=== PATIENT | female | born 1965 | race Caucasian/White ===

== ENCOUNTER 2021-01-19 13:47 | Outpatient (CLI) | payer MEDICAID, SELFPAY ==
--- NOTE | 2021-01-19 13:56 | CT_ITS ---
WS: [id number] CTA HEAD TECHNIQUE: Contrast enhanced CTA of the head with coronal and sagittal reformatted images and maximum intensity projection (MIP) images. NASCET criteria utilized. CLINICAL INFORMATION: NONRUPTURED CEREBRAL ANEURYSM COMPARISON: CTA 11 28,018 DLP: 1471.[address] scans at [facility] use at least one of these dose optimization techniques: automat ed exposure control; mA and/or kV adjustment per patient size (includes targeted exams where dose is matched to clinical indication); or iterative reconstruction. FINDINGS: Prior aneurysm clipping along the anterior communicating artery with adjacent embolization coils. Left frontal shunt catheter with tip in the third ventricle. Beam hardening artifact from aneu rysm clips degrades some images. Chronic appearing infarct right caudate. Chronic lacunar infarcts in the left cerebellum. Prior postoperative changes right frontal and pterional craniotomy. Distal vertebral arteries are patent. Basilar artery is patent. Normal vascularity to the INDUSTRIAL HYGIENIST territo ry bilaterally. Both ICAs are patent at the skull base. Normal vascularity to the CAROLINE and MCA territories bilaterally . No hydrocephalus. Mastoid air cells well aerated. Paranasal sinuses well aerated. CT/CT angio head [id number] IMPRESSION: 1. Prior aneurysm clipping along anterior communicating artery with right fron murali and pterional craniotomy. Adjacent embolization coils. 2. No evidence of flow-limiting stenosis or aneurysm. 3. Otherwise unremarkable intracranial CTA. 4. Left frontal shunt catheter with tip in the third ventricle. No hydrocephal us. 5. Chronic appearing infarcts in the right caudate and cerebellum.
== END 2021-01-19 13:48 | disposition home or self-care (01) ==
PROVIDERS: PCP Family Medicine; Visit Provider Family Medicine
DX: I67.1 Cerebral aneurysm, nonruptured (principal); I63.9 Cerebral infarction, unspecified; Z98.2 Presence of cerebrospinal fluid drainage device
CPT/HCPCS: 70496; Q9967

== ENCOUNTER 2021-02-23 15:21 | Outpatient (CLI) | payer MEDICAID, SELFPAY ==
--- NOTE | 2021-02-23 15:27 | MM_ITS ---
WS: [id number] BILATERAL DIGITAL SCREENING MAMMOGRAPHY WITH CAD CLINICAL INFORMATION: SCREENING HISTORY: Screening mammogram. Bilateral breast soreness COMPARISON: None. TECHNIQUE: Bilateral CC and MLO views. FINDINGS: The breasts are composed of heterogeneous fibroglandular density tissue, which can limit the detectio n of small underlying mass lesions. Dense breast tissue upper outer breasts bilaterally. .No suspicio us mass, asymmetry, calcifications, or architectural distortion. No evidence of malignancy. MM/[id number] IMPRESSION: BI-RADS: 2-Benign FOLLOW UP: 1 Year Follow-up Recommend return to annual screening mammography.
== END 2021-02-23 15:22 | disposition home or self-care (01) ==
PROVIDERS: PCP Family Medicine; Visit Provider Family Medicine
DX: Z12.31 Encounter for screening mammogram for malignant neoplasm of breast (principal)
CPT/HCPCS: 77067

== ENCOUNTER → 2021-06-29 16:06 | Outpatient (BNVA) | payer MEDICAID, SELFPAY | PROVIDERS: PCP Family Medicine; Visit Provider Registered Nurse Neonatal Intensive Care | DX: N39.0 Urinary tract infection, site not specified (principal); M62.838 Other muscle spasm | CPT/HCPCS: 81000 ==

== ENCOUNTER 2022-08-24 13:54 | Outpatient (CLI) | payer MEDICAID, SELFPAY ==
--- NOTE | 2022-08-24 14:00 | MM_ITS ---
WS: [id number] BILATERAL 3D TOMOSYNTHESIS DIGITAL SCREENING MAMMOGRAPHY WITH CAD CLINICAL INFORMATION: SCREENING HISTORY: Screening mammogram. Bilateral breast pain and soreness. COMPARISON: February 23, 2021 TECHNIQUE: Bilateral CC and MLO views. FINDINGS: The breasts are composed of heterogeneous fibroglandular density tissue, which can limit the detectio n of small underlying mass lesions. No suspicious mass, asymmetry, calcifications, or architectural d istortion. No evidence of malignancy. A few tiny punctate calcifications. MM/[id number] IMPRESSION: BI-RADS: 2-Benign FOLLOW UP: 1 Year Follow-up Recommend return to annual screening mammography.
== END 2022-08-24 13:55 | disposition home or self-care (01) ==
LOC: RAD 13:56
PROVIDERS: PCP Family Medicine; Visit Provider Family Medicine
DX: Z12.31 Encounter for screening mammogram for malignant neoplasm of breast (principal)
CPT/HCPCS: 77063; 77067

== ENCOUNTER 2022-10-25 15:42 | Outpatient (CLI) | payer MEDICAID, SELFPAY ==
--- NOTE | 2022-10-25 16:03 | CT_ITS ---
WS: [id number] CT ANGIOGRAM CEREBRAL ARTERIES HISTORY: NONRUPTURED CEREBRAL ANEURYSM TECHNIQUE: Pre and postcontrast imaging through the brain. CT angiogram is performed of the cerebral arteries. During arterial injection imaging is obtained from the skull vertex to the skull base in 1. 25 mm imaging. Coronal and sagittal reformats are submitted. Additional multi planar reformats of the cerebral arteries are submitted, MIP imaging also reviewed. All CT scans at [facility] use at least one of these dose optimization techniques: automated exposure control; mA and/or kV adjustme nt per patient size (includes targeted exams where dose is matched to clinical indication); or iterat trish reconstruction. CONTRAST: Omnipaque 350; 100 mL IV. DLP: 1768.24 mGy.cm COMPARISON: 01/19/2021, 07/12/2018 LEFT frontal shunt catheter with tip at the third ventricle similar to the prior study. Beam hardenin g artifact from aneurysm clips is reidentified. Chronic appearing infarcts in the RIGHT caudate and L EFT cerebellum. No new infarct and no new hemorrhage. Ventricle size is similar to the prior study. N o temporal horn dilatation. Aneurysm clips are noted along the anterior communicating artery with significant beam hardening alla fact secondary to the coils. Similar to the prior studies. Prior RIGHT frontal and temporal lobe craniotomy defects. LEFT frontal leeann hole. Distal vertebral arteries and basilar artery are normal. There is beam hardening artifact obscuring t he very distal basilar tip. Configuration is similar to prior studies. Bilateral internal carotid arteries are patent near the skull base. Normal patency of the middle cere bral arteries and anterior cerebral arteries. Posterior cerebral arteries are identified and normal caliber. No flow-limiting stenosis. Mastoid air cells: Normal. Paranasal sinuses: Normal. CT/CT angio head [id number] IMPRESSION: 1. Prior aneurysm clipping along the anterior communicating artery with no jade dence for recent hemorrhage. No recurrent aneurysm is identified. 2. There is beam hardening artifact from the aneurysm clips. 3. No new or recurrent aneurysm. 4. RIGHT frontal and temporal lobe craniotomies. 5. LEFT frontal shunt catheter with tip in the third ventricle is unchanged. N o hydrocephalus. 6. Stable chronic lacunar infarcts in the RIGHT caudate and cerebellum.
[2022-10-25] MEDS: iohexol 350 mg/mL 500 mL Btl (per mL) IV (16:45)
== END 2022-10-25 15:43 | disposition home or self-care (01) ==
PROVIDERS: PCP Family Medicine; Visit Provider Family Medicine
DX: I67.1 Cerebral aneurysm, nonruptured (principal); I63.81 Other cerebral infarction due to occlusion or stenosis of small artery
CPT/HCPCS: 70496; Q9967

== ENCOUNTER 2024-10-06 14:49 | Emergency (ER) | payer BC, MEDICAID, SELFPAY ==
[2024-10-06 14:51] VITALS: BP 121/68; PULSE 77; RESP 16; TEMP 36.4; O2SAT 98; BMI 25.0
--- NOTE | 2024-10-06 14:51 | ECG_ITS ---
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
== END 2024-10-06 16:45 | disposition left against medical advice (07) ==
PROVIDERS: Emergency Provider Family Medicine; PCP Family Medicine
DX: Z53.21 Procedure and treatment not carried out due to patient leaving prior to being seen by health care provider (principal)
CPT/HCPCS: 93005